=== PATIENT | female | born 1975 | race Caucasian/White ===

== ENCOUNTER 2016-07-04 13:18 | Emergency (ER) | payer OTHER ==
[~2016-07-04] VITALS: Ht 167.6 cm; Wt 80.0 kg
[~2016-07-04 13:18] MED LIST: HYDR-3534 PO
[2016-07-04 13:20] VITALS: BP 118/58; PULSE 62; RESP 16; TEMP 98.2; O2SAT 98
--- NOTE | 2016-07-04 13:56 | PD ---
HPI Chief Complaint: Pain: Acute or Chronic Time Seen by Provider: 13:54 Travel History International Travel<30 days: No Contact w/Intl Traveler<30days: No Traveled to known affect area: No History of Present Illness HPI 41-year-old female who is sent [employer] employee with complaint of left wrist pain after a patient threw himself onto the stretcher bed and landed on her wrist, bending it. She has history of carpal tunnel syndrome in the same wrist and carpal tunnel surgery. She reports paresthesias in the palm of her hand that radiates up her 2 middle fingers. Denies loss of sensation, decreased range of motion, decreased strength to the affected extremity. He is not taking any medications or tried any treatments to alleviate her symptoms. No known allergies. Denies significant past medical history. No other modifying factors or associated signs and symptoms. PFSH Past Medical History Medical History: Denies Significant Hx Cardiovascular Problems: No Diabetes: No Diminished Hearing: No Immunizations Current: Yes ?: Not : 1 Para: 1 Past Surgical History Section: Yes (x1) Hysterectomy: Yes Other Surgery: Yes () Social History Alcohol Use: Yes (socially) Tobacco Use: No Substance Use: No Allergies-Medications (Allergen,Severity, Reaction): Coded Allergies: No Known Allergies (Verified , 07/04/16) Reported Meds & Prescriptions Reported Meds & Active Scripts Active Ibuprofen 800 Mg Tab 800 Mg PO Q6HR PRN Review of Systems Except as stated in HPI: all other systems reviewed are Neg Physical Exam Narrative GENERAL: Well-nourished, well-developed female patient, in no acute distress SKIN: Warm and dry. HEAD: Atraumatic. Normocephalic. EYES: Pupils equal and round. No scleral icterus. No injection or drainage. ENT: Mucosa pink and moist. Airway patent. NECK: Trachea midline. CARDIOVASCULAR: Regular rate. RESPIRATORY: No accessory muscle use. GASTROINTESTINAL: Flat. MUSCULOSKELETAL: Left wrist with full range of motion and without erythema or edema; no obvious deformity; with tenderness on palpation to the anterior aspect. Left upper extremity is supple and non-tense with 2+ radial pulse and sensory intact and without erythema or edema. No obvious deformities. No clubbing. No cyanosis. NEUROLOGICAL: Awake and alert. Oriented 3. No obvious cranial nerve deficits. Motor grossly within normal limits. Normal speech. PSYCHIATRIC: Appropriate mood and affect; insight and judgment normal. Data Data Last Documented VS Vital Signs Date Time Temp Pulse Resp B/P Pulse Ox O2 Delivery O2 Flow Rate FiO2 07/04/16 13:20 98.2 62 16 118/58 98 Orders Splint Or Brace Apply/Monitor (07/04/16 13:53) Ibuprofen (Motrin) (07/04/16 14:00) Wrist, Complete ([id number]) (07/04/16 13:53) Cockup Hand Splint (07/04/16 ) MDM Medical Decision Making Medical Screen Exam Complete: Yes Emergency Medical Condition: Yes Medical Record Reviewed: Yes Differential Diagnosis Wrist sprain, fracture, dislocation Narrative Course 41-year-old female, [employer] employee, with left wrist injury. Left approximately supple and non-tense with 2+ radial pulse and sensory intact without erythema or edema. Ibuprofen ordered. Left wrist x-ray ordered. 1512: Left wrist x-ray concludes a normal examination. Velcro wrist splint provided for support. Ibuprofen prescribed for home. Patient is medically cleared and stable for discharge. Discussed reasons to return to the emergency department. Instructed patient to follow up with primary care provider. Patient agrees with treatment plan. The patients vital signs are stable and the patient is stable for outpatient follow-up and treatment. Patient discharged home, stable and in no acute distress. Diagnosis Primary Impression: Left wrist sprain Qualified Code: S63.502A - Left wrist sprain, initial encounter Referrals: Primary Care Physician Patient Instructions: General Instructions, Wrist Sprain (ED) Departure Forms: Tests/Procedures, Work Release Enter return to work date: Jul 04, 2016 Additional Instructions: Tylenol or ibuprofen as directed and as needed to reduce pain Rest, ice, compress, and elevate extremity to decrease pain and inflammation Wrist Splint for support Avoid aggravating activity; increase activity as tolerated Follow-up with primary care provider Return to the emergency department immediately with worsening symptoms Med/Other Pt SpecificInfo: Prescription(s) given Scripts Ibuprofen 800 Mg [id number] Mg PO Q6HR PRN (PAIN) #30 TAB Ref 0 Prov:Katharine Miller 07/04/16 Disposition: 01 DISCHARGE HOME Condition: Stable Katharine Miller Jul 04, 2016 13:56
[2016-07-04] MEDS ORDERED: IBUPROFEN 800 MG TAB PO ONE (14:00)
[2016-07-04] MEDS ORDERED: IBUP800T23 PO (14:19)
--- NOTE | 2016-07-04 15:01 | RADRPT ---
EXAM DATE/TIME: 07/04/2016 14:20 [facility] COMPARISON: No previous studies available for comparison. 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 Patient landed on left wrist. MEDICAL HISTORY : None. SURGICAL HISTORY : None. ENCOUNTER: Initial ACUITY: 1 day PAIN SCORE: 3/10 LOCATION: Left wrist. FINDINGS: Three views of the left wrist demonstrate no fracture or dislocation. Mineralization is within normal limits. There is no significant arthropathy. No soft tissue abnormality or radiopaque foreign body i s identified. CONCLUSION: Normal examination of the left wrist. Nikhil Davies MD on July 04, 2016 at 14:59 Board Certified Radiologist. This report was verified electronically.
== END 2016-07-04 15:29 | disposition home or self-care (01) ==
LOC: NEPB 13:18
DX: S63.502A Unspecified sprain of left wrist, initial encounter (principal); W50.0XXA Accidental hit or strike by another person, initial encounter; Y93.F9 Activity, other caregiving; Y92.239 Unspecified place in hospital as the place of occurrence of the external cause; Y99.0 Civilian activity done for income or pay
CPT/HCPCS: 73110; 99283; L3908